=== PATIENT | male | born 1945 | race Caucasian/White ===

== ENCOUNTER → 2025-02-11 10:20 | Outpatient (REF) | payer BC, SELFPAY | LOC: HWCARD 10:20 | PROVIDERS: ATTENDING PHYSICIAN Specialist; FAMILY PHYSICIAN Family Medicine | DX: Z01.818 Encounter for other preprocedural examination (principal) | CPT/HCPCS: 93005 ==

== ENCOUNTER 2025-07-08 06:21 | Inpatient (IN) | payer MEDICARE, BC, SELFPAY ==
--- NOTE | 2025-06-05 10:05 | CM ---
Cm reviewed medical records. Left message for CM IA.
[2025-06-14 09:37] VITALS: BMI 34.0
[2025-06-14 10:53] LABS: Hematocrit 46.2 % (39.0-52.0); Hemoglobin 15.1 g/dL (13.0-18.0); Mean Corp Hgb Conc. 32.7 g/dL (33.0-37.0); Mean Corpuscular Volume 89.0 fL (80.0-94.0); Platelet Count 213 10^3/uL (130-400); Red Cell Dist. Width 13.7 % (11.5-14.5)
[2025-06-14 11:16] LABS: Glycohemoglobin (HgbA1c) 5.9 % (4.0-5.6)
[2025-06-14 11:24] LABS: ALT (SGPT) 17 U/L (0-50); AST (SGOT) 20 U/L (17-59); Albumin 4.6 g/dl (3.5-5.0); Alkaline Phosphatase 70 U/L (38-126); Blood Urea Nitrogen 27 mg/dl (9-20); Calcium 9.6 mg/dl (8.4-10.2); Carbon Dioxide 28 mmol/L (22-30); Chloride 104 mmol/L (98-107); Estimated Creatinine Clearance 53 ml/min; Glucose 98 mg/dl (70-99); Potassium 5.0 mmol/L (3.5-5.1); Sodium 137 mmol/L (135-145); Total Protein 7.3 g/dl (6.3-8.2); eGFR 56.58
[2025-06-14 16:41] VITALS: BMI 34.0
--- NOTE | 2025-06-18 13:14 | CM ---
Addendum entered by Anay Bhatti RN 06/21/25 13:01:
Patient stated that he wasn't sure if someone from [facility] was suppose to call regarding is PT appointments. CM reinforced that patient will have to call himself to make his PT appointments.
Addendum entered by Anay Bhatti RN 06/20/25 15:41:
CM left message with patient's regarding outpatient PT appointments. CM will await call back from patient.
Addendum entered by Anay Bhatti RN 06/18/25 13:32:
CM confirmed that patient will be appropriate for outpatient PT. CM left message with patient to updated that he will have to make outpatient PT appointments for 07/10 and 07/12.
Original Note:
CM spoke with patient.
Demographics: confirmed
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
Support Person Post Operatively: Son
History of
VN: No
SNF: No
Outpatient: [facility]
Has patient purchased required equipment: yes
PCP: Active
Pharmacy: [facility]
Post Operative Discharge Plan: Patient was advised that he will have post operatively and then start outpatient. As per patient, plan was for [facility], but utlimately was changed to [facility]. Of note, patient's son will have to provide care for patient's
ailing .
CM contacted orthopedic PA to confirm plan for discharge to home. Home with outpatient PT vs. VN.
[2025-07-08] VITALS (18 sets, daily range): BP systolic 127–161; BP diastolic 71–124; PULSE 91; O2SAT 99; BMI 34.0
[2025-07-08] MEDS: NORMOSOL-R/PLASMALYTE-A 1000 IV ×2 (07:02→11:21)
[2025-07-08] MEDS: CELEBREX 200 MG PO (07:03)
[2025-07-08] MEDS: TYLENOL 650 MG PO ×4 (07:03→23:29)
--- NOTE | 2025-07-08 07:14 | W.PN.ORTHO ---
Today's Communication / Plan
-
d/c when stable
Assessment
.
Dressing:
Clean, dry and intact.
Assessment:
Urinary retention-increase Flomax to bid
Chronic pain-increase Oxy to 10mg p/o-Gabapentin at hs, Decadron-monitor
CKD 3-GFR <60-no NSAID
Plan
.
Surgery / Date: L TKA Dr Lund 07/08/25
DVT Prophylaxis: Aspirin
Activity:
Out of bed.
PT/OT
Discharge Plan: Home w/ Outpatient PT
Vital Signs and Labs
.
Vital Signs and Labs:
Lab Results
06/14/25 09:49
06/14/25 09:49
Temp Pulse Resp BP Pulse Ox
98.4 F 89 16 161/94 97
07/08/25 06:50 07/08/25 06:50 07/08/25 06:50 07/08/25 06:50 07/08/25 06:50
--- NOTE | 2025-07-08 07:23 | W.DS.TRANS ---
DC Summary - Diagnostic Assistant
-
Discharge Instructions:
Sleep Apnea Risk Intermediate
Discharge Diagnosis/Procedures L TKA Dr Lund 07/08/25
Diet As tolerated
Activity With Walker
Bathing Restrictions OK to Shower
Other Services PT
Instructions:
Stand-Alone Forms: Total Hip/Knee Replacement D/C
Changes to Home Medications: Yes
Discharge Medications:
DC Medications w/original date entered in [employer]
montelukast 10 mg tablet 10 mg PO HS 02/10/21
niacin 1,000 mg tablet,extended release 24 hr 1,000 mg PO HS 02/10/21
tamsulosin 0.4 mg capsule 0.4 mg PO HS 02/10/21
albuterol sulfate 90 mcg/actuation aerosol inhaler 2 puff inhalation 6XD PRN asthma 06/13/25
cholecalciferol (vitamin D3) 25 mcg (1,000 unit) tablet (Vitamin D3) 25 mcg PO HS 06/13/25
coQ10 (ubiquinol) 100 mg capsule 300 mg PO HS 06/13/25
Held on 07/08/25. Instructions: Resume on 07/16/25.
ezetimibe 10 mg tablet (Zetia) 10 mg PO HS 06/13/25
fluticasone 250 mcg-salmeterol 50 mcg/dose blistr powdr for inhalation (Advair Diskus) 1 inh inhalation BID 06/13/25
mecobalamin (vitamin B12) 1,000 mcg chewable tablet (B12 Active) 1,000 mcg PO HS 06/13/25
tadalafil 5 mg tablet (Cialis) 5 mg PO DAILY PRN ED 06/13/25
Held on 07/08/25. Instructions: Resume on 06/19/25.
dexamethasone 4 mg tablet 4 mg PO BID inflammation #6 tabs 06/14/25
famotidine 20 mg tablet 20 mg PO HS GI prophylaxis #30 tabs 06/14/25
gabapentin 300 mg capsule 300 mg PO HS sleep/pain #10 caps 06/14/25
mupirocin 2 % topical ointment 1 applic topical BID infection prevention #1 tube 06/14/25
aspirin 325 mg tablet 325 mg PO DAILY blood clot prevention #1 tab 07/08/25
docusate sodium 100 mg capsule (Colace) 100 mg PO BID stool softner #1 cap 07/08/25
magnesium hydroxide 400 mg/5 mL oral suspension (Milk of Magnesia) 30 ml PO HS PRN constipation #1 mL 07/08/25
oxycodone-acetaminophen 5 mg-325 mg tablet (Percocet) 2 tab PO Q4H PRN moderate-severe pain #0 tabs 07/08/25
sennosides 8.6 mg tablet (Senokot) 17.2 mg (2 x 8.6 mg) PO BID laxative #2 tabs 07/08/25
valsartan 160 mg tablet (Diovan) 160 mg PO HS #0 tabs 07/08/25
Home Medication Changes
dexamethasone 4 mg tablet 4 mg PO BID inflammation #6 tabs 06/14/25
famotidine 20 mg tablet 20 mg PO HS GI prophylaxis #30 tabs 06/14/25
mupirocin 2 % topical ointment 1 applic topical BID infection prevention #1 tube 06/14/25
aspirin 325 mg tablet 325 mg PO DAILY blood clot prevention #1 tab 07/08/25
docusate sodium 100 mg capsule (Colace) 100 mg PO BID stool softner #1 cap 07/08/25
magnesium hydroxide 400 mg/5 mL oral suspension (Milk of Magnesia) 30 ml PO HS PRN constipation #1 mL 07/08/25
oxycodone-acetaminophen 5 mg-325 mg tablet (Percocet) 2 tab PO Q4H PRN moderate-severe pain #0 tabs 07/08/25
sennosides 8.6 mg tablet (Senokot) 17.2 mg (2 x 8.6 mg) PO BID laxative #2 tabs 07/08/25
Pending Results: No
[2025-07-08] MEDS: ROXICODONE PO (10:39)
[2025-07-08] MEDS: ROXICODONE 10 MG PO ×3 (10:48→21:35)
[2025-07-08] MEDS: TYLENOL PO (11:52)
[2025-07-08] MEDS: FLOMAX 0.4 MG PO ×2 (11:54→21:28)
[2025-07-08] MEDS: ADVAIR HFA 115/21 MCG INHALER INH (12:33)
[2025-07-08] MEDS: DILAUDID 0.5 MG IV ×2 (14:40→18:07)
[2025-07-08] MEDS: ANCEF 5 IV ×2 (14:40→22:30)
[2025-07-08] MEDS: ASPIRIN 325 MG PO (17:28)
[2025-07-08] MEDS: ADVAIR HFA 115/21 MCG INHALER 2 PUFF INH (19:15)
[2025-07-08] MEDS: DECADRON 4 MG IV (20:30)
[2025-07-08] MEDS: BACTROBAN 2% OINTMENT 1 APPLIC NASAL (20:30)
[2025-07-08] MEDS: COLACE 100 MG PO (20:30)
[2025-07-08] MEDS: SENOKOT 17.2 MG PO (20:30)
[2025-07-08] MEDS: ZETIA 10 MG PO (21:22)
[2025-07-08] MEDS: NEURONTIN 300 MG PO (21:23)
[2025-07-08] MEDS: PEPCID 20 MG PO (21:23)
[2025-07-08] MEDS: SINGULAIR 10 MG PO (21:23)
[2025-07-09 02:48] VITALS: BP 129/86
[2025-07-09] MEDS: TYLENOL 650 MG PO ×2 (03:42→09:07)
[2025-07-09 06:57] VITALS: BP 132/80
[2025-07-09] MEDS: ADVAIR HFA 115/21 MCG INHALER 2 PUFF INH (07:30)
[2025-07-09] MEDS: BACTROBAN 2% OINTMENT 1 APPLIC NASAL (09:06)
[2025-07-09] MEDS: SENOKOT 17.2 MG PO (09:06)
[2025-07-09] MEDS: ASPIRIN 325 MG PO (09:06)
[2025-07-09] MEDS: COLACE 100 MG PO (09:06)
[2025-07-09] MEDS: DECADRON 4 MG IV (09:07)
[2025-07-09] MEDS: FLOMAX 0.4 MG PO (09:09)
[2025-07-09] MEDS: ROXICODONE 10 MG PO (09:09)
--- NOTE | 2025-07-09 09:27 | CM ---
Cm confirmed that he has made his appointment for outpatient PT on 07/10. IMM given.
PLAN: Home with outpatient PT.
[2025-07-09 10:58] VITALS: BP 158/88; PULSE 99; O2SAT 95
[2025-07-09 11:00] VITALS: BP 150/89
[2025-07-09 11:55] VITALS: BP 153/91; PULSE 90; O2SAT 94
[2025-07-09] MEDS: TYLENOL PO (12:16)
[2025-07-09 12:49] VITALS: BP 144/82
--- NOTE | 2025-07-09 14:53 | W.PN.ORTHO ---
Today's Communication / Plan
-
d/c
Assessment
.
Distal Motor Intact: Yes
Dressing:
Clean, dry and intact.
Assessment:
Urinary retention-increase Flomax to bid--urinating well
Chronic pain-increase Oxy to 10mg p/o-Gabapentin at hs, [id number] well controlled
CKD 3-GFR <60-no NSAID
Plan
.
Surgery / Date: L TKA Dr Lund 07/08/25
DVT Prophylaxis: Aspirin
Activity:
Out of bed.
PT/OT
Discharge Plan: Home w/ Outpatient PT
Subjective
.
.:
Patient resting comfortably.
Vital Signs and Labs
.
Vital Signs and Labs:
Lab Results
06/14/25 09:49
06/14/25 09:49
Temp Pulse Resp BP Pulse Ox
98.4 F 88 17 144/82 98
07/09/25 12:49 07/09/25 12:49 07/09/25 12:49 07/09/25 12:49 07/09/25 12:49
Non-invasive Hgb result: 12.2
Physical Exam
-
HEENT: No pallor, cyanosis, or jaundice. Throat clear.
NECK: Supple. No JVD.
RESPIRATORY: Lungs clear to auscultation.
CVS: S1, S2 normal. RRR.� No murmur, rub or gallop.
ABDOMEN: Soft, non-tender. No distension. BS+/normal.
EXTREMITIES: strength equal, no calf pain with palpation
MEDICAL EDUCATION COORDINATOR: AOx3. No focal deficits. 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
== END 2025-07-09 14:10 | disposition home or self-care (01) | DRG 470 ==
LOC: 2 SOUTH 06:21
PROVIDERS: ADMITTING PHYSICIAN Specialist; FAMILY PHYSICIAN Family Medicine
PROC: 0SRD0J9 Replacement of Left Knee Joint with Synthetic Substitute, Cemented, Open Approach (ICD-10-PCS; 2025-07-08)
DX: M17.12 Unilateral primary osteoarthritis, left knee (principal); N18.30 Chronic kidney disease, stage 3 unspecified; I12.9 Hypertensive chronic kidney disease with stage 1 through stage 4 chronic kidney disease, or unspecified chronic kidney disease; E78.5 Hyperlipidemia, unspecified; I45.10 Unspecified right bundle-branch block; E53.8 Deficiency of other specified B group vitamins; I49.3 Ventricular premature depolarization; J45.20 Mild intermittent asthma, uncomplicated; E66.9 Obesity, unspecified; M51.369 Other intervertebral disc degeneration, lumbar region without mention of lumbar back pain or lower extremity pain; G89.29 Other chronic pain; R33.9 Retention of urine, unspecified; G47.33 Obstructive sleep apnea (adult) (pediatric); G62.9 Polyneuropathy, unspecified; Z96.612 Presence of left artificial shoulder joint; Z91.048 Other nonmedicinal substance allergy status; Z63.6 Dependent relative needing care at home; Z68.33 Body mass index [BMI] 33.0-33.9, adult; Z86.73 Personal history of transient ischemic attack (TIA), and cerebral infarction without residual deficits
CPT/HCPCS: 36415; 73560; 80053; 83036; 85027; 87070; 93005; 94640; 97110; 97116; 97162; 97166; 97530; 97535; C1713; C1776